=== PATIENT | female | born 1975 | race African-American/Black ===

== ENCOUNTER 2016-05-13 17:48 | Emergency (ER) | payer BC ==
[~2016-05-13 17:48] MED LIST: Iopamidol 370 76% 100 ML VIAL ONE
[2016-05-13] MEDS ORDERED: Lidocaine Viscous Sol 2% 15 ml UD Cup ONE (18:04)
[2016-05-13] MEDS ORDERED: Mag-Al Plus 1200 MG/1200 MG/120 MG/30 ML UDCUP ONE (18:04)
[2016-05-13] MEDS ORDERED: Ondansetron HCl/PF 4 MG/2 ML Vial ONE (18:04)
[2016-05-13 18:44] LABS: ALT (SGPT) 10 U/L (0-55); AST (SGOT) 13 U/L (5-34); Alkaline Phosphatase 53 U/L (40-150); Anion Gap 15 mmol/L (10-20); BUN (Urea Nitrogen) 8 mg/dL (7.0-18.7); Bilirubin, Total 0.1 mg/dL (0.2-1.2); Calc. Creatinine Clearance 0 mL/min (70-130); Calcium 8.5 mg/dL (7.8-10.44); Carbon Dioxide 22 mmol/L (22-29); Chloride 106 mmol/L (98-107); Estimated GFR-MDRD 80; Globulin 3.1 g/dL (2.4-3.5); Lipase 15 U/L (8-78); Protein, Total 6.5 g/dL (6.0-8.3)
[2016-05-13 18:46] LABS: #Basophils 0.1 thou/uL (0.0-0.2); #Eosinphils 0.1 thou/uL (0.0-0.7); #Lymphocytes 2.5 thou/uL (1.20-3.40); #Monocytes 0.3 thou/uL (0.11-0.59); #Neutrophils 4.2 thou/uL (1.40-6.50); %Basophils 0.8 % (0.0-1.0); %Eosinophils 1.5 % (0.0-10.0); %Monocytes 3.7 % (0.0-10.0); Hematocrit 28.2 % (36.0-47.0); Hypochromia SLIGHT = 6-15 cells (100X) (0-5/hpf); Mean Platelet Volume 8.3 fL (7.4-10.4); Microcytosis SLIGHT = 6-15 cells (100X) (0-5/hpf); Red Blood Cell (RBC) Count 3.85 mill/uL (4.20-5.40); White Blood Cell (WBC) Count 7.1 thou/uL (4.8-10.8)
--- NOTE | 2016-05-13 19:21 | CT ---
CT ANGIOGRAM OF THE CHEST 05/13/16 HISTORY: Chest pain, worsening in the last hour. COMPARISON: None. TECHNIQUE: CT angiogram of the chest is performed in the axial plane. Coronal reformatted images and bilateral oblique three dimensional maximum intensity projection images are submitted for interpretation. FINDINGS: Trachea and central bronchi are patent. No masses or consolidation. Minimal atelectatic change in th e lower lobes. No pneumothorax or pleural effusion. No mediastinal mass, lymphadenopathy or hematoma. Heart size is normal. No pericardial effusion. Sma ll hiatal hernia is noted. The visualized upper solid organs are unremarkable. Limited evaluation of the pulmonary arterial system due to timing of contrast bolus and motion degra dation. There is adequate contrast opacification of the pulmonary arteries to the level of the centr al pulmonary arteries. No filling defect to suggest thromboembolism. The visualized aorta has a normal caliber. No periaortic fat stranding. No dissection. IMPRESSION: Limited evaluation due to motion degradation and timing of contrast bolus. No central filling defect to suggest a central pulmonary artery embolism. POS: [facility]IL
== END 2016-05-13 19:06 | disposition home or self-care (01) ==
LOC: NAV ERS 17:48
DX: K20.9 Esophagitis, unspecified (principal); D53.9 Nutritional anemia, unspecified; K21.9 Gastro-esophageal reflux disease without esophagitis; I10 Essential (primary) hypertension
CPT/HCPCS: 71275; 80053; 82553; 83690; 84484; 85025; 93005; 94760; 96374; 96375; J2270; J2405

== ENCOUNTER 2023-02-16 12:05 | Emergency (ER) | payer BC | END 2023-02-16 13:35 | disposition home or self-care (01) | LOC: NAV ERS 12:05 | DX: S90.31XA Contusion of right foot, initial encounter (principal); W22.8XXA Striking against or struck by other objects, initial encounter ==